=== PATIENT | female | born 1960 | race Caucasian/White ===

== ENCOUNTER 2021-02-04 18:46 | Inpatient (IN) ==
[2021-02-05] MEDS ORDERED: Naloxone 0.4 MG/ML INJ IVP PRN (01:03)
[2021-02-05] MEDS ORDERED: levoFLOXacin 750 MG/150 ML 750 MG/150 ML BAG IVPB SCH (04:00)
[2021-02-05 07:44] LABS: Basophils % 0.3 %; Eosinophils % 0.2 %; Hematocrit 25.3 % (35.3-44.9); Hemoglobin 7.6 g/dL (11.5-15.4); Immature Granulocytes % 0.5 % (0-4); Lymphocytes # 0.5 K/mcL (0.6-4.6); Lymphocytes % 8.3 %; Mean Corpuscular Hemoglobin 33.9 pg (28.0-33.3); Mean Corpuscular Volume 112.9 fL (83.0-100.0); Monocytes # 0.6 K/mcL (0.0-1.3); Monocytes % 9.5 %; Neutrophils # 4.7 K/mcL (1.6-8.9); Platelet Count 155 K/mcL (140-400); Red Blood Count 2.24 M/mcL (3.82-4.97); Red Cell Distribution Width 13.6 % (11.5-14.5); Segmented Neutrophils % 81.2 %; White Blood Count 5.8 K/mcL (4.3-11.1)
[2021-02-05 08:02] LABS: BUN/Creatinine Ratio 11 (6-26); Blood Urea Nitrogen 63 mg/dL (6-20); Calcium 11.2 mg/dL (8.6-10.3); Carbon Dioxide 30 mEq/L (23-29); Chloride 102 mEq/L (98-107); Glucose 180 mg/dL (70-105); Lactate Dehydrogenase 249 Units/L (140-271); Osmolality,Calculated 311 (280-300); Potassium 4.8 mEq/L (3.5-5.1); Sodium 139 mEq/L (136-145); Troponin I < 0.03 ng/mL (< 0.04); eGFR For African Americans 9 (> 60); eGFR For Non-African Americans 7 (> 60)
[2021-02-05 08:12] LABS: Anisocytosis 1+ (Not Present); Macrocytosis Present (Not Present); Platelet Estimate Normal (Normal); Thyroid Stimulating Hormone 0.784 mcIU/mL (0.340-5.600)
[2021-02-05 08:13] LABS: INR 2.5; Prothrombin Time 28.1 Seconds (9.4-12.1)
[2021-02-05 08:17] LABS: Ferritin 499 ng/mL (10-120)
[2021-02-05 08:58] LABS: C-Reactive Protein 40 mg/L (Less than 10)
[2021-02-05 10:58] LABS: Hematocrit 25.5 % (35.3-44.9)
[2021-02-05 11:10] LABS: Uric Acid 8.6 mg/dL (2.3-7.6)
[2021-02-05] MEDS: Albumin 25% 25gram/100mL 25 GM/100 ML IV.SOLN IVPB SCH ×2 (11:21→17:31)
[2021-02-05] MEDS: Ipratropium 1 PUFF INHALER IH SCH ×4 (12:18→23:20)
[2021-02-05] MEDS ORDERED: D5% in Water 1,000 ML IVC PRN (12:54)
[2021-02-05] MEDS ORDERED: Dextrose Gel 15 GM/37.5 ML TUBE PO PRN ×2 (12:54)
[2021-02-05] MEDS ORDERED: *HR* Dextrose 50 % in Water (Syg) 50 ML SYRINGE IVP PRN (12:54)
[2021-02-05] MEDS: Insulin LISPRO 300 UNITS/3 ML VIAL SUBQ SCH (17:31)
[2021-02-05] MEDS ORDERED: *HR* Warfarin 5 MG TABLET PO ONE (18:00)
[2021-02-05] MEDS ORDERED: Warfarin perPT PO PRN (18:00)
[2021-02-06] MEDS: PHENobarbitaL 32.4 MG TABLET PO SCH ×3 (00:48→21:01)
[2021-02-06] MEDS: Albumin 25% 25gram/100mL 25 GM/100 ML IV.SOLN IVPB SCH ×2 (02:24→08:43)
[2021-02-06] MEDS: Insulin LISPRO 300 UNITS/3 ML VIAL SUBQ SCH ×5 (02:27→21:00)
[2021-02-06] MEDS: Ipratropium 1 PUFF INHALER IH SCH ×6 (04:03→23:29)
[2021-02-06 07:01] LABS: INR 2.1
[2021-02-06 07:14] LABS: Calcium 10.9 mg/dL (8.6-10.3); Potassium 3.7 mEq/L (3.5-5.1)
[2021-02-06] MEDS ORDERED: 0.9 % Sodium Chloride 250 ML IVC PRN (07:27)
[2021-02-06] MEDS ORDERED: 0.9 % Sodium Chloride 1,000 ML PRIME SCH (07:30)
[2021-02-06] MEDS: Gabapentin 300 MG CAPSULE PO SCH ×2 (08:37→17:48)
[2021-02-06] MEDS: carvediloL 6.25 MG TABLET PO SCH ×2 (08:37→21:00)
[2021-02-06] MEDS ORDERED: Heparin 1,000 UNITS/500 mL 500 ML ONE (13:55)
[2021-02-06] MEDS ORDERED: *HR* FentaNYL (PF) 100 MCG/2 ML VIAL IVP ONE (14:17)
[2021-02-06] MEDS ORDERED: *HR* Midazolam HCl 2 MG/2 ML VIAL IVP ONE (14:17)
[2021-02-06] MEDS ORDERED: *HR* Midazolam HCl 2 MG/2 ML VIAL ONE (14:27)
[2021-02-06] MEDS ORDERED: *HR* FentaNYL (PF) 100 MCG/2 ML VIAL ONE (14:27)
[2021-02-06] MEDS ORDERED: 0.9 % Sodium Chloride 500 ML ONE (14:27)
[2021-02-06] MEDS ORDERED: *HR* Heparin 5,000 UNIT/ML VIAL ONE (14:44)
[2021-02-06 16:20] LABS: Basophils % 0.2 %; Hematocrit 24.7 % (35.3-44.9); Hemoglobin 7.8 g/dL (11.5-15.4); Immature Granulocytes % 0.5 % (0-4); Lymphocytes # 0.4 K/mcL (0.6-4.6); Lymphocytes % 6.9 %; Mean Corpuscular HGB Conc 31.6 g/dL (31.6-35.5); Mean Corpuscular Hemoglobin 34.2 pg (28.0-33.3); Mean Corpuscular Volume 108.3 fL (83.0-100.0); Mean Platelet Volume 9.9 fL (9.4-12.4); Monocytes # 0.3 K/mcL (0.0-1.3); Monocytes % 5.5 %; Platelet Count 155 K/mcL (140-400); Red Blood Count 2.28 M/mcL (3.82-4.97); Red Cell Distribution Width 13.6 % (11.5-14.5); Segmented Neutrophils % 86.9 %; White Blood Count 5.8 K/mcL (4.3-11.1)
[2021-02-06] MEDS ORDERED: *HR* Warfarin 2.5 MG TABLET PO ONE (18:00)
[2021-02-06 21:48] LABS: Hepatitis B Surface Antibody < 3.10 mIU/mL
[2021-02-06 21:58] LABS: Hepatitis B Surface Antigen Nonreactive (Nonreactive)
[2021-02-07] MEDS: Ipratropium 1 PUFF INHALER IH SCH ×6 (03:29→23:51)
[2021-02-07 05:54] LABS: INR 2.7
[2021-02-07 05:57] LABS: % Iron Saturation 22 % (15-50); Iron 47 mcg/dL (50-170); Transferrin 151 mg/dL (203-362)
[2021-02-07] MEDS ORDERED: levoFLOXacin 500 MG/100 ML 500 MG/100 ML BAG IVPB SCH (08:00)
[2021-02-07] MEDS ORDERED: 0.9 % Sodium Chloride 250 ML IVC PRN (09:02)
[2021-02-07] MEDS ORDERED: *HR* Heparin 10,000 UNIT/10 ML VIAL IV PRN (09:02)
[2021-02-07] MEDS ORDERED: 0.9 % Sodium Chloride 1,000 ML PRIME SCH (09:15)
[2021-02-07 09:55] LABS: Basophils % 0.4 %; Eosinophils % 0.2 %; Hematocrit 25.8 % (35.3-44.9); Hemoglobin 8.1 g/dL (11.5-15.4); Immature Granulocytes % 0.6 % (0-4); Lymphocytes # 0.5 K/mcL (0.6-4.6); Lymphocytes % 9.1 %; Mean Corpuscular HGB Conc 31.4 g/dL (31.6-35.5); Mean Corpuscular Hemoglobin 33.9 pg (28.0-33.3); Mean Corpuscular Volume 107.9 fL (83.0-100.0); Mean Platelet Volume 9.8 fL (9.4-12.4); Monocytes # 0.6 K/mcL (0.0-1.3); Monocytes % 11.8 %; Neutrophils # 4.2 K/mcL (1.6-8.9); Platelet Count 131 K/mcL (140-400); Red Blood Count 2.39 M/mcL (3.82-4.97); Red Cell Distribution Width 13.8 % (11.5-14.5); Segmented Neutrophils % 77.9 %; White Blood Count 5.4 K/mcL (4.3-11.1)
[2021-02-07 10:16] LABS: Calcium 10.4 mg/dL (8.6-10.3); Potassium 3.9 mEq/L (3.5-5.1)
[2021-02-07] MEDS: Insulin LISPRO 300 UNITS/3 ML VIAL SUBQ SCH ×4 (12:58→19:58)
[2021-02-07] MEDS: carvediloL 6.25 MG TABLET PO SCH ×2 (13:01→19:57)
[2021-02-07] MEDS: Doxycycline 100 MG CAPSULE PO SCH ×2 (13:01→19:57)
[2021-02-07] MEDS: Acetaminophen 325 MG TABLET PO PRN ×2 (13:07→23:41)
[2021-02-07] MEDS ORDERED: Gabapentin 300 MG CAPSULE PO ONE (14:39)
[2021-02-07] MEDS: cefTRIAXone 1,000 MG in 0.9 % Sodium Chloride Mini Bag 100 ML IVPB SCH (16:01)
[2021-02-07] MEDS: PHENobarbitaL 32.4 MG TABLET PO SCH ×2 (16:01→19:57)
[2021-02-07] MEDS: Ondansetron 4 MG/2 ML VIAL IVP PRN (16:02)
[2021-02-07] MEDS: Benzonatate 100 MG CAPSULE PO SCH ×2 (16:02→19:56)
[2021-02-07] MEDS: Loratadine 10 MG TABLET PO SCH (19:56)
[2021-02-07] MEDS: Gabapentin 300 MG CAPSULE PO SCH (19:56)
[2021-02-08] MEDS: Ipratropium 1 PUFF INHALER IH SCH ×6 (03:52→23:34)
[2021-02-08 09:24] LABS: Red Cell Distribution Width 13.7 % (11.5-14.5)
[2021-02-08 09:27] LABS: Basophils % 0.4 %; Eosinophils % 0.2 %; Hemoglobin 8.2 g/dL (11.5-15.4); Immature Granulocytes % 0.6 % (0-4); Lymphocytes # 0.8 K/mcL (0.6-4.6); Lymphocytes % 16.2 %; Mean Corpuscular HGB Conc 31.5 g/dL (31.6-35.5); Mean Corpuscular Hemoglobin 33.9 pg (28.0-33.3); Mean Corpuscular Volume 107.4 fL (83.0-100.0); Mean Platelet Volume 9.9 fL (9.4-12.4); Monocytes # 0.6 K/mcL (0.0-1.3); Monocytes % 11.3 %; Platelet Count 127 K/mcL (140-400); Red Blood Count 2.42 M/mcL (3.82-4.97); Segmented Neutrophils % 71.3 %
[2021-02-08 09:30] LABS: Neutrophils # 3.6 K/mcL (1.6-8.9)
[2021-02-08 09:32] LABS: INR 3.3; Prothrombin Time 36.2 Seconds (9.4-12.1)
[2021-02-08] MEDS: Doxycycline 100 MG CAPSULE PO SCH ×2 (09:40→20:19)
[2021-02-08] MEDS: Benzonatate 100 MG CAPSULE PO SCH ×3 (09:40→20:19)
[2021-02-08] MEDS: carvediloL 6.25 MG TABLET PO SCH ×2 (09:40→20:19)
[2021-02-08] MEDS: PHENobarbitaL 32.4 MG TABLET PO SCH ×2 (09:41→20:20)
[2021-02-08] MEDS: calcitrioL 0.25 MCG CAPSULE PO SCH (09:41)
[2021-02-08] MEDS: cefTRIAXone 1,000 MG in 0.9 % Sodium Chloride Mini Bag 100 ML IVPB SCH (09:42)
[2021-02-08] MEDS: Insulin LISPRO 300 UNITS/3 ML VIAL SUBQ SCH ×4 (09:51→21:35)
[2021-02-08] MEDS: BENZOYL PEROXIDE TP SCH (09:52)
[2021-02-08] MEDS: CLINDAMYCIN TP SCH (09:52)
[2021-02-08 10:28] LABS: Calcium 9.4 mg/dL (8.6-10.3); Potassium 3.5 mEq/L (3.5-5.1)
[2021-02-08] MEDS ORDERED: AZATHIOPRINE PO SCH (11:00)
[2021-02-08] MEDS: Gabapentin 300 MG CAPSULE PO SCH (20:19)
[2021-02-08] MEDS: Loratadine 10 MG TABLET PO SCH (20:19)
[2021-02-09] MEDS: Ipratropium 1 PUFF INHALER IH SCH ×7 (03:36→23:45)
[2021-02-09 05:08] LABS: Hematocrit 26.4 % (35.3-44.9); Hemoglobin 8.6 g/dL (11.5-15.4); Mean Corpuscular HGB Conc 32.6 g/dL (31.6-35.5); Mean Corpuscular Hemoglobin 34.5 pg (28.0-33.3); Mean Platelet Volume 10.3 fL (9.4-12.4); Platelet Count 144 K/mcL (140-400); Red Blood Count 2.49 M/mcL (3.82-4.97); Red Cell Distribution Width 13.4 % (11.5-14.5); White Blood Count 7.2 K/mcL (4.3-11.1)
[2021-02-09 05:14] LABS: Prothrombin Time 22.7 Seconds (9.4-12.1)
[2021-02-09 05:25] LABS: Calcium 9.5 mg/dL (8.6-10.3); Potassium 3.8 mEq/L (3.5-5.1)
[2021-02-09 05:57] LABS: Folate > 22.3 ng/mL (3.0-16.0); Vitamin B12 > 1500 pg/mL (250-1100)
[2021-02-09] MEDS: cefTRIAXone 1,000 MG in 0.9 % Sodium Chloride Mini Bag 100 ML IVPB SCH (09:49)
[2021-02-09] MEDS: carvediloL 6.25 MG TABLET PO SCH ×2 (09:53→19:50)
[2021-02-09] MEDS: Doxycycline 100 MG CAPSULE PO SCH ×2 (09:54→19:50)
[2021-02-09] MEDS: AZATHIOPRINE PO SCH (09:59)
[2021-02-09] MEDS: CLINDAMYCIN TP SCH (10:00)
[2021-02-09] MEDS: calcitrioL 0.25 MCG CAPSULE PO SCH (10:00)
[2021-02-09] MEDS: PHENobarbitaL 32.4 MG TABLET PO SCH ×2 (10:00→19:50)
[2021-02-09] MEDS: BENZOYL PEROXIDE TP SCH (10:00)
[2021-02-09] MEDS: Benzonatate 100 MG CAPSULE PO SCH ×3 (10:01→19:50)
[2021-02-09] MEDS: Insulin LISPRO 300 UNITS/3 ML VIAL SUBQ SCH ×4 (10:04→19:51)
[2021-02-09] MEDS ORDERED: *HR* Warfarin 2 MG TABLET PO ONE (18:00)
[2021-02-09] MEDS: Loratadine 10 MG TABLET PO SCH (19:50)
[2021-02-09] MEDS: Gabapentin 300 MG CAPSULE PO SCH (19:51)
[2021-02-10 02:47] LABS: Calcium 9.2 mg/dL (8.6-10.3); Potassium 3.5 mEq/L (3.5-5.1)
[2021-02-10 02:48] LABS: INR 1.6; Prothrombin Time 17.8 Seconds (9.4-12.1)
[2021-02-10] MEDS: Ipratropium 1 PUFF INHALER IH SCH ×6 (03:42→23:51)
[2021-02-10 04:54] LABS: Bacteria,Urine Few per hpf (None-Few); Bilirubin,Urine Negative (Negative); Blood,Urine Large (Negative); Clarity,Urine Clear (Clear); Color,Urine Colorless (Yellow); Glucose,Urine (UA) 30 mg/dL (Normal); Ketones,Urine Negative (Negative); Leukocyte Esterase,Urine Negative (Negative); Mucus,Urine Few per lpf (None-Few); Nitrite,Urine Negative (Negative); Protein,Urine 100 mg/dL (Neg-Trace); RBC,Urine 15-30 per hpf (0-3); Squamous Epithelial Cell,Urine Few per hpf (None-Few); Urobilinogen,Urine Normal (Normal); WBC,Urine 0-3 per hpf (0-3)
[2021-02-10 05:08] LABS: Sodium, Urine 37.1 mEq/L
[2021-02-10] MEDS ORDERED: *HR* Heparin 10,000 UNIT/10 ML VIAL IV PRN ×2 (08:12)
[2021-02-10] MEDS ORDERED: 0.9 % Sodium Chloride 250 ML IVC PRN (08:12)
[2021-02-10] MEDS ORDERED: 0.9 % Sodium Chloride 1,000 ML PRIME SCH (08:15)
[2021-02-10] MEDS: PHENobarbitaL 32.4 MG TABLET PO SCH ×2 (08:38→21:35)
[2021-02-10] MEDS: carvediloL 6.25 MG TABLET PO SCH ×2 (08:38→21:35)
[2021-02-10] MEDS: Benzonatate 100 MG CAPSULE PO SCH ×3 (08:38→21:34)
[2021-02-10] MEDS: Doxycycline 100 MG CAPSULE PO SCH ×2 (08:38→21:35)
[2021-02-10] MEDS: Insulin LISPRO 300 UNITS/3 ML VIAL SUBQ SCH ×4 (08:39→21:41)
[2021-02-10] MEDS: calcitrioL 0.25 MCG CAPSULE PO SCH (08:41)
[2021-02-10] MEDS: CLINDAMYCIN TP SCH (09:16)
[2021-02-10] MEDS: BENZOYL PEROXIDE TP SCH (09:16)
[2021-02-10] MEDS: AZATHIOPRINE PO SCH (09:16)
[2021-02-10] MEDS: cefTRIAXone 1,000 MG in 0.9 % Sodium Chloride Mini Bag 100 ML IVPB SCH (09:38)
[2021-02-10] MEDS ORDERED: *HR* Warfarin 2 MG TABLET PO ONE (18:00)
[2021-02-10] MEDS: Gabapentin 300 MG CAPSULE PO SCH (21:35)
[2021-02-10] MEDS: Loratadine 10 MG TABLET PO SCH (21:35)
[2021-02-11] MEDS ORDERED: Melatonin 3 MG TABLET PO STA (02:29)
[2021-02-11] MEDS ORDERED: Melatonin 3 MG TABLET PO PRN ×2 (02:29→21:00)
[2021-02-11] MEDS: Ipratropium 1 PUFF INHALER IH SCH ×4 (03:28→16:00)
[2021-02-11] MEDS: Insulin LISPRO 300 UNITS/3 ML VIAL SUBQ SCH ×2 (08:29→11:24)
[2021-02-11] MEDS: PHENobarbitaL 32.4 MG TABLET PO SCH (08:53)
[2021-02-11] MEDS: calcitrioL 0.25 MCG CAPSULE PO SCH (08:53)
[2021-02-11] MEDS: Doxycycline 100 MG CAPSULE PO SCH (08:53)
[2021-02-11] MEDS: Benzonatate 100 MG CAPSULE PO SCH (08:53)
[2021-02-11] MEDS: carvediloL 6.25 MG TABLET PO SCH (08:54)
[2021-02-11] MEDS: CLINDAMYCIN TP SCH (08:56)
[2021-02-11] MEDS: BENZOYL PEROXIDE TP SCH (08:56)
[2021-02-11] MEDS: AZATHIOPRINE PO SCH (09:05)
[2021-02-11] MEDS: Ondansetron 4 MG/2 ML VIAL IVP PRN (09:07)
[2021-02-11 09:17] LABS: INR 1.5; Prothrombin Time 16.9 Seconds (9.4-12.1)
[2021-02-11 09:27] LABS: Potassium 3.2 mEq/L (3.5-5.1)
[2021-02-11 14:22] VITALS: BP 130/72; PULSE 85; TEMP 98.1
[2021-02-11 16:02] VITALS: O2SAT 96
[2021-02-11] MEDS ORDERED: *HR* Warfarin 4 MG TABLET PO ONE (18:00)
== END 2021-02-11 18:30 | disposition home or self-care (01) | DRG 177 ==
LOC: 2ANU → SUATTDRO 02-05 03:28 → 3NENU 02-06 16:20
PROVIDERS: ADMIT Internal Medicine; ATTEND Internal Medicine
PROC: IRPERMA (2021-02-06 12:00)

== ENCOUNTER 2021-04-03 10:25 | Observation (INO) ==
[2021-04-03 15:00] LABS: INR 3.2; Prothrombin Time 35.4 Seconds (9.4-12.1)
[2021-04-03] MEDS ORDERED: *HR* Heparin 5,000 UNIT/ML VIAL ONE (15:26)
[2021-04-03] MEDS ORDERED: Heparin 1,000 UNITS/500 mL 500 ML ONE (15:41)
[2021-04-03] MEDS ORDERED: Lidocaine/EPI 1:100k 1% 50 ML VIAL ONE (15:41)
[2021-04-03 15:58] LABS: Basophils # 0.1 K/mcL (0.0-0.2); Basophils % 0.5 %; Eosinophils # 0.1 K/mcL (0.0-0.6); Eosinophils % 0.6 %; Hematocrit 36.3 % (35.3-44.9); Hemoglobin 11.7 g/dL (11.5-15.4); Immature Granulocytes % 0.8 % (0-4); Lymphocytes # 0.6 K/mcL (0.6-4.6); Lymphocytes % 5.7 %; Mean Corpuscular HGB Conc 32.2 g/dL (31.6-35.5); Mean Corpuscular Hemoglobin 35.7 pg (28.0-33.3); Mean Corpuscular Volume 110.7 fL (83.0-100.0); Mean Platelet Volume 10.3 fL (9.4-12.4); Monocytes # 0.4 K/mcL (0.0-1.3); Monocytes % 3.8 %; Platelet Count 252 K/mcL (140-400); Red Blood Count 3.28 M/mcL (3.82-4.97); Red Cell Distribution Width 15.5 % (11.5-14.5); Segmented Neutrophils % 88.6 %
[2021-04-03 15:59] LABS: Neutrophils # 8.9 K/mcL (1.6-8.9)
[2021-04-03 16:15] LABS: Calcium 10.5 mg/dL (8.6-10.3); Potassium 4.3 mEq/L (3.5-5.1)
[2021-04-03 16:23] LABS: Anisocytosis 1+ (Not Present); Hypochromasia Present (Not Present); Macrocytosis Present (Not Present)
[2021-04-03 16:24] LABS: Platelet Estimate Normal (Normal); Polychromasia 1+ (Not Present)
[2021-04-03] MEDS ORDERED: Acetaminophen 325 MG TABLET PO PRN (16:50)
[2021-04-03] MEDS ORDERED: D5% in Water 1,000 ML IVC PRN (16:50)
[2021-04-03] MEDS ORDERED: Dextrose Gel 15 GM/37.5 ML TUBE PO PRN ×2 (16:50)
[2021-04-03] MEDS ORDERED: Naloxone 0.4 MG/ML INJ IVP PRN (16:50)
[2021-04-03] MEDS ORDERED: Ondansetron 4 MG/2 ML VIAL IVP PRN (16:50)
[2021-04-03] MEDS ORDERED: *HR* Dextrose 50 % in Water (Syg) 50 ML SYRINGE IVP PRN (16:50)
[2021-04-03] MEDS: levETIRAcetam 250 MG TABLET PO SCH (17:54)
[2021-04-03] MEDS: carvediloL 25 MG TABLET PO SCH (17:54)
[2021-04-03] MEDS: PHENobarbitaL 32.4 MG TABLET PO SCH (21:33)
[2021-04-03] MEDS: Gabapentin 300 MG CAPSULE PO SCH (21:33)
[2021-04-03] MEDS: Insulin DETEMIR 100 UNIT/ML X5UNITS SUBQ SCH (21:33)
[2021-04-04 04:22] LABS: Hematocrit 34.2 % (35.3-44.9); Mean Corpuscular HGB Conc 32.2 g/dL (31.6-35.5); Mean Corpuscular Hemoglobin 35.5 pg (28.0-33.3); Mean Corpuscular Volume 110.3 fL (83.0-100.0); Mean Platelet Volume 9.7 fL (9.4-12.4); Platelet Count 217 K/mcL (140-400); Red Cell Distribution Width 15.7 % (11.5-14.5); Segmented Neutrophils % 69.6 %; White Blood Count 8.5 K/mcL (4.3-11.1)
[2021-04-04 04:23] LABS: Basophils % 0.5 %; Eosinophils # 0.1 K/mcL (0.0-0.6); Eosinophils % 1.1 %; Immature Granulocytes % 0.6 % (0-4); Lymphocytes # 1.6 K/mcL (0.6-4.6); Lymphocytes % 18.3 %; Monocytes # 0.8 K/mcL (0.0-1.3); Monocytes % 9.9 %; Neutrophils # 5.9 K/mcL (1.6-8.9)
[2021-04-04 04:31] LABS: Prothrombin Time 32.7 Seconds (9.4-12.1)
[2021-04-04 04:41] LABS: Calcium 9.6 mg/dL (8.6-10.3); Magnesium 2.1 mg/dL (1.6-2.6); Phosphorous 4.4 mg/dL (2.7-4.5); Potassium 3.7 mEq/L (3.5-5.1)
[2021-04-04] MEDS: levETIRAcetam 250 MG TABLET PO SCH ×2 (05:52→17:56)
[2021-04-04 06:04] LABS: Anisocytosis 1+ (Not Present); Macrocytosis Present (Not Present); Platelet Estimate Normal (Normal)
[2021-04-04 06:05] LABS: Polychromasia 1+ (Not Present)
[2021-04-04] MEDS: Insulin LISPRO 300 UNITS/3 ML VIAL SUBQ SCH ×3 (07:08→18:07)
[2021-04-04] MEDS: Ascorbic Acid 500 MG TABLET PO SCH ×2 (08:30→22:19)
[2021-04-04] MEDS: PHENobarbitaL 32.4 MG TABLET PO SCH ×2 (08:30→22:19)
[2021-04-04] MEDS: carvediloL 25 MG TABLET PO SCH ×2 (08:30→17:56)
[2021-04-04] MEDS: Furosemide 40 MG TABLET PO SCH (08:30)
[2021-04-04] MEDS ORDERED: 0.9 % Sodium Chloride 250 ML IVC PRN (08:36)
[2021-04-04] MEDS ORDERED: *HR* Heparin 10,000 UNIT/10 ML VIAL IV PRN (08:36)
[2021-04-04] MEDS ORDERED: 0.9 % Sodium Chloride 1,000 ML PRIME SCH (08:45)
[2021-04-04 10:00] LABS: Hepatitis B Surface Antibody 3.43 mIU/mL
[2021-04-04 10:11] LABS: Hepatitis B Surface Antigen Nonreactive (Nonreactive)
[2021-04-04] MEDS: BENZACLIN TP SCH (11:41)
[2021-04-04] MEDS: Gabapentin 300 MG CAPSULE PO SCH (22:19)
[2021-04-04] MEDS: Loratadine 10 MG TABLET PO SCH (22:19)
[2021-04-04] MEDS: Insulin DETEMIR 100 UNIT/ML X5UNITS SUBQ SCH (22:19)
[2021-04-04] MEDS ORDERED: Melatonin 3 MG TABLET PO ONE (23:09)
[2021-04-05] MEDS: levETIRAcetam 250 MG TABLET PO SCH ×2 (05:45→16:55)
[2021-04-05 06:41] LABS: INR 2.4; Prothrombin Time 26.4 Seconds (9.4-12.1)
[2021-04-05] MEDS: Insulin LISPRO 300 UNITS/3 ML VIAL SUBQ SCH ×3 (07:37→16:55)
[2021-04-05] MEDS: Ascorbic Acid 500 MG TABLET PO SCH ×2 (08:00→21:00)
[2021-04-05] MEDS: PHENobarbitaL 32.4 MG TABLET PO SCH ×2 (08:00→22:08)
[2021-04-05] MEDS: Furosemide 40 MG TABLET PO SCH (08:00)
[2021-04-05] MEDS: carvediloL 25 MG TABLET PO SCH ×2 (08:00→16:59)
[2021-04-05] MEDS: BENZACLIN TP SCH (08:01)
[2021-04-05] MEDS ORDERED: Ergocalciferol (VIT D2) 50,000 UNIT (1.25MG) CAP PO SCH (09:00)
[2021-04-05] MEDS: Gabapentin 300 MG CAPSULE PO SCH (22:08)
[2021-04-05] MEDS: Loratadine 10 MG TABLET PO SCH (22:08)
[2021-04-05] MEDS: Insulin DETEMIR 100 UNIT/ML X5UNITS SUBQ SCH (22:10)
[2021-04-06 04:53] LABS: Basophils # 0.1 K/mcL (0.0-0.2); Basophils % 1.1 %; Eosinophils # 0.5 K/mcL (0.0-0.6); Eosinophils % 6.2 %; Hematocrit 32.6 % (35.3-44.9); Hemoglobin 10.6 g/dL (11.5-15.4); Immature Granulocytes % 0.8 % (0-4); Lymphocytes # 1.1 K/mcL (0.6-4.6); Lymphocytes % 14.6 %; Mean Corpuscular HGB Conc 32.5 g/dL (31.6-35.5); Mean Corpuscular Hemoglobin 35.3 pg (28.0-33.3); Mean Corpuscular Volume 108.7 fL (83.0-100.0); Mean Platelet Volume 9.7 fL (9.4-12.4); Monocytes # 0.8 K/mcL (0.0-1.3); Monocytes % 10.9 %; Neutrophils # 4.8 K/mcL (1.6-8.9); Platelet Count 141 K/mcL (140-400); Red Cell Distribution Width 15.8 % (11.5-14.5); Segmented Neutrophils % 66.4 %; White Blood Count 7.3 K/mcL (4.3-11.1)
[2021-04-06 05:01] LABS: INR 1.6
[2021-04-06 05:13] LABS: Calcium 9.5 mg/dL (8.6-10.3); Potassium 3.5 mEq/L (3.5-5.1)
[2021-04-06] MEDS: levETIRAcetam 250 MG TABLET PO SCH (06:25)
[2021-04-06] MEDS: PHENobarbitaL 32.4 MG TABLET PO SCH (08:12)
[2021-04-06] MEDS: carvediloL 25 MG TABLET PO SCH ×2 (08:12→19:25)
[2021-04-06] MEDS: Furosemide 40 MG TABLET PO SCH (08:12)
[2021-04-06] MEDS: Ascorbic Acid 500 MG TABLET PO SCH (08:12)
[2021-04-06] MEDS: Insulin LISPRO 300 UNITS/3 ML VIAL SUBQ SCH ×3 (08:13→19:25)
[2021-04-06] MEDS: BENZACLIN TP SCH (08:16)
[2021-04-06] MEDS ORDERED: levETIRAcetam 250 MG TABLET PO SCH (09:00)
[2021-04-06] MEDS ORDERED: calcitrioL 0.25 MCG CAPSULE PO SCH (09:00)
[2021-04-06] MEDS ORDERED: 0.9 % Sodium Chloride 250 ML IVC PRN (09:21)
[2021-04-06] MEDS ORDERED: *HR* Heparin 10,000 UNIT/10 ML VIAL IV PRN (09:21)
[2021-04-06] MEDS ORDERED: 0.9 % Sodium Chloride 500 ML ONE (11:23)
[2021-04-06] MEDS ORDERED: ceFAZolin 2,000 MG in D5% in Water 100 ML IVPB ONE (11:29)
[2021-04-06] MEDS ORDERED: *HR* FentaNYL (PF) 100 MCG/2 ML VIAL IVP ONE (11:29)
[2021-04-06] MEDS ORDERED: *HR* Midazolam HCl 2 MG/2 ML VIAL IVP ONE (11:29)
[2021-04-06] MEDS ORDERED: Heparin 1,000 UNITS/500 mL 500 ML ONE (11:31)
[2021-04-06] MEDS ORDERED: ceFAZolin 1,000 MG in 0.9 % Sodium Chloride Mini Bag 100 ML IVPB SCH (12:00)
[2021-04-06 13:07] VITALS: PULSE 87; O2SAT 95
[2021-04-06] MEDS ORDERED: *HR* Warfarin 5 MG TABLET PO ONE ×2 (14:00→18:00)
[2021-04-06] MEDS ORDERED: *HR* Heparin 5,000 UNIT/ML VIAL SQ ONE (14:00)
[2021-04-06 20:41] VITALS: BP 127/62; TEMP 97.9
[2021-04-08] MEDS ORDERED: levETIRAcetam 250 MG TABLET PO SCH (16:00)
== END 2021-04-06 20:04 | disposition home or self-care (01) ==
LOC: 2ANU 10:25 → EMEROOARM 10:25 → 2ANU 17:37
PROVIDERS: ADMIT General Practice; ATTEND General Practice
PROC: IRPERMA (2021-04-06 12:00)